=== PATIENT | female | born 1975 | race Caucasian/White ===

== ENCOUNTER → 2017-01-16 | Outpatient (REF) ==
[~2017-01-16] MED LIST: CATAFLAM50 MG; CATAPRES 0.1MG0.1 MG PO; CRUTCHES MC; NEURONTIN400 MG/CAP PO; NORCO 325 MG-51 TAB PO; PHENERGAN 25 TA25 MG PO; PROAIR HFA0.09 MG/AC IH; REMERON 15M15 MG/TA1 PO; SYNTHROID 0.10.15 MG PO
== END ==
LOC: WSOH 07:57 → WSPT 09:30
DX: Z02.1 Encounter for pre-employment examination (principal)

== ENCOUNTER 2017-02-03 16:34 | Emergency (ER) | payer MEDICAID ==
[~2017-02-03] VITALS: Ht 160 cm; Wt 95.5 kg
[2017-02-03 16:41] VITALS: BP 149/77; TEMP 99
[2017-02-03] MEDS ORDERED: NEURONTIN400 MG/CAP PO (16:57)
[2017-02-03] MEDS ORDERED: PROAIR HFA0.09 MG/AC IH (16:57)
[2017-02-03] MEDS ORDERED: CATAFLAM50 MG (16:57)
[2017-02-03] MEDS ORDERED: PHENERGAN 25 TA25 MG PO (16:57)
[2017-02-03] MEDS ORDERED: SYNTHROID 0.10.15 MG PO (16:57)
[2017-02-03] MEDS ORDERED: REMERON 15M15 MG/TA1 PO (16:58)
[2017-02-03] MEDS ORDERED: CATAPRES 0.1MG0.1 MG PO (16:58)
[2017-02-03] MEDS ORDERED: NORCO 325 MG-51 TAB PO (18:49)
[2017-02-03] MEDS ORDERED: CRUTCHES MC (18:56)
[2017-02-03 19:14] VITALS: PULSE 86
== END 2017-02-03 19:16 | disposition home or self-care (01) ==
LOC: COL.ER 16:34
DX: S82.831A Other fracture of upper and lower end of right fibula, initial encounter for closed fracture (principal); W19.XXXA Unspecified fall, initial encounter; G25.81 Restless legs syndrome; F43.10 Post-traumatic stress disorder, unspecified

== ENCOUNTER → 2017-04-01 | Outpatient (REF) | LOC: WSOH 12:00 | DX: Z02.89 Encounter for other administrative examinations (principal) ==